=== PATIENT | female | born 1965 ===

== ENCOUNTER 2021-04-29 16:44 | Inpatient (IN) | payer OTHER ==
[~2021-04-29] VITALS: Ht 165.1 cm; Wt 127.9 kg
[~2021-04-29 16:44] MED LIST: VALSARTAN160 MG PO
[2021-05-02] MEDS ORDERED: VALSARTAN-HCTZ1 EAC1 (08:57)
[2021-05-02] MEDS ORDERED: MAXIMUM D3325 MCG (08:57)
== END 2021-05-03 13:02 | disposition home or self-care (01) | DRG 740 ==
LOC: O/R 05-02 05:30 → OB/GYN 05-02 05:30 → SURH 05-02 17:56 → OB/GYN 05-02 18:06 → SURH 05-02 18:41
PROVIDERS: Surgery; ADMIT Obstetrics & Gynecology Gynecologic Oncology; ATTEND Obstetrics & Gynecology Gynecologic Oncology
PROC: 0UT24ZZ Resection of Bilateral Ovaries, Percutaneous Endoscopic Approach (ICD-10-PCS; 2021-05-02)
PROC: 0UT74ZZ Resection of Bilateral Fallopian Tubes, Percutaneous Endoscopic Approach (ICD-10-PCS; 2021-05-02)
PROC: 07BC4ZZ Excision of Pelvis Lymphatic, Percutaneous Endoscopic Approach (ICD-10-PCS; 2021-05-02)
PROC: 0UT94ZZ Resection of Uterus, Percutaneous Endoscopic Approach (ICD-10-PCS; principal; 2021-05-02 07:00)
PROC: 0WQF4ZZ Repair Abdominal Wall, Percutaneous Endoscopic Approach (ICD-10-PCS; 2021-05-02 07:00)
DX: C54.1 Malignant neoplasm of endometrium (principal); K42.0 Umbilical hernia with obstruction, without gangrene; N80.0 Endometriosis of uterus; D25.1 Intramural leiomyoma of uterus; D36.0 Benign neoplasm of lymph nodes; I10 Essential (primary) hypertension